=== PATIENT | male | born 1945 | race Caucasian/White ===

== ENCOUNTER 2024-04-12 09:26 | Day surgery (SDC) | payer MEDICARE ==
[2024-04-12] VITALS (16 sets, daily range): BP systolic 95–148; BP diastolic 60–101
[~2024-04-12] VITALS: Ht 175.3 cm; Wt 96.4 kg
[~2024-04-12 09:26] MED LIST: ALBU90OI INH; ALLO100 PO; ATOR40TA PO; Aspir 8181 MG PO; Bisoprolol Fumar5 MG PO; COLCHICINE0.6 MG PO; DAPAGLIFLOZIN10 MG PO; DOXY100 PO; OMEP20ER PO; TORSE20 PO
[2024-04-12] MEDS ORDERED: TRELEGY ELLIPT1 EACH IH (10:15)
[2024-04-12] MEDS ORDERED: Verapamil HCL 2.5 MG/ML 2ML Injection ONE (13:07)
[2024-04-12] MEDS ORDERED: Heparin Sodium 1000 Units/ML 10ML MDV ONE (13:08)
[2024-04-12] MEDS ORDERED: NS 250 ML IV ONE ×2 (13:08→13:24)
[2024-04-12] MEDS ORDERED: NS 1,000 ML IV ONE (13:08)
[2024-04-12] MEDS ORDERED: FentaNYL Citrate 50 MCG/ML 2 ML Injection ONE (13:24)
[2024-04-12] MEDS ORDERED: Midazolam HCl 1MG / ML 2ML Vial ONE (13:24)
--- NOTE | 2024-04-12 14:29 | NUR ---
R RADIAL SITE SOFT AND NON-TENDER PER PT. NO BLEEDING NOTED.
--- NOTE | 2024-04-12 14:50 | NUR ---
PT RESTING IN BED. RADIAL SITE SOFT AND NON-TENDER PER PT. NO BLEEDING NOTED.
--- NOTE | 2024-04-12 14:59 | NUR ---
PT GIVEN WATER PER REQUEST. PT DENIED FOOD.
--- NOTE | 2024-04-12 15:40 | NUR ---
2CC REMOVED FROM TR BAND. SITE SOFT AND NON-TENDER PER PT. NO BLEEDING NOTED.
--- NOTE | 2024-04-12 15:54 | NUR ---
2cc removed from tr band. site soft and non-tender per pt. no bleeding noted.
--- NOTE | 2024-04-12 16:02 | NUR ---
tr band fully deflated. no bleeding noted. site soft and non-tender per pt.
--- NOTE | 2024-04-12 16:34 | NUR ---
pt given dc instructions and verbalized understanding. iv out. cloth dot, arm board, amd sling applied. radial site soft and non-tender per pt. no bleeding noted. pt refused wc. pt ambulated to lby w/ . to take pt home.
== END 2024-04-12 16:41 | disposition home or self-care (01) ==
LOC: MHTC 09:26
DX: I25.5 Ischemic cardiomyopathy (principal); I25.10 Atherosclerotic heart disease of native coronary artery without angina pectoris; I25.84 Coronary atherosclerosis due to calcified coronary lesion; J44.9 Chronic obstructive pulmonary disease, unspecified; Z79.82 Long term (current) use of aspirin; Z79.899 Other long term (current) drug therapy; N18.9 Chronic kidney disease, unspecified
CPT/HCPCS: 76937; 93458; 99152; C1769; C1887; C1894; J1644; J2250; J3010; J7030; J7050; Q9967